=== PATIENT | female | born 1970 | race African-American/Black ===

== ENCOUNTER 2017-02-23 19:01 | Emergency (ER) | payer SELFPAY ==
[~2017-02-23 19:01] MED LIST: FERR325T PO
[2017-02-23 19:04] VITALS: BP 159/104; PULSE 98; RESP 16; TEMP 99.4; O2SAT 97
[2017-02-23 21:26] VITALS: BP 167/92; PULSE 97; RESP 15; TEMP 100.9; O2SAT 96
[2017-02-23] MEDS ORDERED: PANTOPRAZOLE SODIUM 40 MG VIAL IV PUSH ONE (22:15)
[2017-02-23] MEDS ORDERED: SODIUM CHLOR 0.9% 1000 ML INJ 1,000 ML IV ONE (22:15)
[2017-02-23] MEDS ORDERED: ONDANSETRON HCL 4 MG/2 ML VIAL IV PUSH ONE (22:15)
[2017-02-23 22:25] LABS: AUTOMATED NEUTROPHIL # 4.1 TH/MM3 (1.8-7.7); BASOPHIL % 0.3 % (0.0-2.0); EOSINOPHIL % 0.1 % (0.0-4.0); HEMATOCRIT 41.6 % (35.0-46.0); HEMO FLAGS DIFF FINAL; LYMPHOCYTE # 1.1 TH/MM3 (1.0-4.8); MEAN CELL VOLUME 85.6 FL (80.0-100.0); MEAN CORPUSCULAR HGB CONC 33.8 % (32.0-36.0); MONO % 9.9 % (0.0-8.0); NEUT % 70.7 % (16.0-70.0); PLATELET COUNT 272 TH/MM3 (150-450); RED BLOOD COUNT 4.86 MIL/MM3 (4.00-5.30); RED CELL DISTRIBUTION WIDTH 13.3 % (11.6-17.2); WHITE BLOOD COUNT 5.8 TH/MM3 (4.0-11.0)
[2017-02-23 22:44] LABS: ALT (GPT) 21 U/L (10-53)
[2017-02-23 22:47] LABS: ALKALINE PHOSPHATASE 80 U/L (45-117); ANION GAP 8 MEQ/L (5-15); AST (GOT) 36 U/L (15-37); BLOOD UREA NITROGEN 13 MG/DL (7-18); CHLORIDE 103 MEQ/L (98-107); GLOMERULAR FILTRATION RATE 68 ML/MIN (>89); POTASSIUM 4.1 MEQ/L (3.5-5.1); SODIUM (NA) 137 MEQ/L (136-145); TOTAL BILIRUBIN ADULT 0.6 MG/DL (0.2-1.0)
--- NOTE | 2017-02-23 23:45 | PD ---
HPI Chief Complaint: Abdominal Pain Time Seen by Provider: 21:29 Travel History International Travel<30 days: No Contact w/Intl Traveler<30days: No Traveled to known affect area: No History of Present Illness HPI Patient has diarrhea and vomiting and some cramping for the last few days patient denies sick contacts her children with her do not have any symptoms the same patient has a pressure of 167/85 and she reports she is always hypertensive I tell her that is not good and that we may be to treat her with a prescription after we cure her gastroenteritis pain is localized mild to the epigastrium her symptoms have been continuous for the last 2 days he is not taking anything to alleviate the symptoms pain is mild to the epigastrium no radiation PFSH Past Medical History Medical History: Denies Significant Hx Diminished Hearing: No Tetanus Vaccination: Unknown Influenza Vaccination: Yes ?: Unknown Past Surgical History Surgical History: No Previous Surgery Section: Yes Social History Alcohol Use: No Tobacco Use: No Substance Use: No Allergies-Medications (Allergen,Severity, Reaction): Coded Allergies: No Known Allergies (Verified Allergy, Severe, 02/07/03) Reported Meds & Prescriptions Reported Meds & Active Scripts Active Imodium A-D (Loperamide HCl) 2 Mg Capsule 2 Mg PO DIRECTED PRN 5 Days One capsule after each loose stool. Not to exceed 8 tablets per day. Zofran Odt (Ondansetron Odt) 4 Mg Tab 4 Mg SL Q8HR PRN Lisinopril 10 Mg Tab 10 Mg PO DAILY Iron (Ferrous Sulfate) 325 Mg Tab 325 Mg PO TID 30 Days Review of Systems Except as stated in HPI: all other systems reviewed are Neg Gastrointestinal: Positive: Nausea, Vomiting, Diarrhea, Abdominal Pain Physical Exam Narrative GENERAL: No apparent distress awake alert oriented 3 SKIN: Warm and dry. HEAD: Atraumatic. Normocephalic. EYES: Pupils equal and round. No scleral icterus. No injection or drainage. ENT: No nasal bleeding or discharge. Mucous membranes pink and moist. NECK: Trachea midline. No JVD. CARDIOVASCULAR: Regular rate and rhythm. RESPIRATORY: No accessory muscle use. Clear to auscultation. Breath sounds equal bilaterally. GASTROINTESTINAL: Abdomen soft, non-tender, nondistended. Hepatic and splenic margins not palpable. MUSCULOSKELETAL: Extremities without clubbing, cyanosis, or edema. No obvious deformities. NEUROLOGICAL: Awake and alert. No obvious cranial nerve deficits. Motor grossly within normal limits. Five out of 5 muscle strength in the arms and legs. Normal speech. PSYCHIATRIC: Appropriate mood and affect; insight and judgment normal. Data Data Last Documented VS Vital Signs Date Time Temp Pulse Resp B/P (MAP) Pulse Ox O2 Delivery O2 Flow Rate FiO2 02/24/17 00:05 02/23/17 21:26 100.9 97 15 96 Room Air Orders Orders Ondansetron Inj (Zofran Inj) (02/23/17 22:15) Pantoprazole Inj (Protonix Inj) (02/23/17 22:15) Sodium Chlor 0.9% 1000 Ml Inj (Ns 1000 M (02/23/17 22:15) Complete Blood Count With Diff (02/23/17 22:02) Comprehensive Metabolic Panel (02/23/17 22:02) Ed Discharge Order (02/23/17 23:47) Labs Laboratory Tests Test 02/23/17 22:00 White Blood Count 5.8 TH/MM3 Red Blood Count 4.86 MIL/MM3 Hemoglobin 14.1 GM/DL Hematocrit 41.6 % Mean Corpuscular Volume 85.6 FL Mean Corpuscular Hemoglobin 29.0 PG Mean Corpuscular Hemoglobin Concent 33.8 % Red Cell Distribution Width 13.3 % Platelet Count 272 TH/MM3 Mean Platelet Volume 8.7 FL Neutrophils (%) (Auto) 70.7 % Lymphocytes (%) (Auto) 19.0 % Monocytes (%) (Auto) 9.9 % Eosinophils (%) (Auto) 0.1 % Basophils (%) (Auto) 0.3 % Neutrophils # (Auto) 4.1 TH/MM3 Lymphocytes # (Auto) 1.1 TH/MM3 Monocytes # (Auto) 0.6 TH/MM3 Eosinophils # (Auto) 0.0 TH/MM3 Basophils # (Auto) 0.0 TH/MM3 CBC Comment DIFF FINAL Differential Comment Blood Urea Nitrogen 13 MG/DL Creatinine 1.04 MG/DL Random Glucose 101 MG/DL Total Protein 8.2 GM/DL Albumin 3.2 GM/DL Calcium Level 9.2 MG/DL Alkaline Phosphatase 80 U/L Aspartate Amino Transf (AST/SGOT) 36 U/L Alanine Aminotransferase (ALT/SGPT) 21 U/L Total Bilirubin 0.6 MG/DL Sodium Level 137 MEQ/L Potassium Level 4.1 MEQ/L Chloride Level 103 MEQ/L Carbon Dioxide Level 26.0 MEQ/L Anion Gap 8 MEQ/L Estimat Glomerular Filtration Rate 68 ML/MIN MDM Medical Decision Making Medical Screen Exam Complete: Yes Emergency Medical Condition: Yes Differential Diagnosis gastroenteritis vs infectious diarrhea vs IBS or food poisoning bacterial Narrative Course Patient is given a liter fluid Zofran and Protonix feels better labs are all within normal limits there is no elevation of her LFTs aren't her bilirubin is negative as well and her belly exam was benign discharge follow-up as an outpatient I am giving her lisinopril 10 mg by mouth daily for the first time she has never taken an antihypertensive and she is walking around with her pressure 167 she says is her normal 3 years so I explained her the risk of a stroke as well as a cardiac event and give her prescription for 10 mg was sent up rolled follow-up Diagnosis Primary Impression: Gastroenteritis Additional Impression: Hypertension Scripts Loperamide (Imodium A-D) 2 Mg Capsule 2 MG PO DIRECTED Y for DIARRHEA for 5 Days, #6 CAP 0 Refills One capsule after each loose stool. Not to exceed 8 tablets per day. Prov: Darell Dwyer MD 02/23/17 Ondansetron Odt (Zofran Odt) 4 Mg Tab 4 MG SL Q8HR Y for Nausea/Vomiting, #10 TAB 0 Refills Prov: Darell Dwyer MD 02/23/17 Lisinopril (Lisinopril) 10 Mg Tab 10 MG PO DAILY, #30 TAB 0 Refills Prov: Darell Dwyer MD 02/23/17 Disposition: 01 DISCHARGE HOME Condition: Good Darell Dwyer MD Feb 23, 2017 23:45
[2017-02-23] MEDS ORDERED: LISI10TA3 PO (23:52)
[2017-02-23] MEDS ORDERED: LOPE-1 PO (23:52)
[2017-02-23] MEDS ORDERED: ZOFR4TAB3 SL (23:52)
== END 2017-02-24 00:15 | disposition home or self-care (01) ==
LOC: NEPC 19:01
DX: K52.9 Noninfective gastroenteritis and colitis, unspecified (principal); I10 Essential (primary) hypertension; Z79.899 Other long term (current) drug therapy
CPT/HCPCS: 80053; 85025; 96361; 96374; 96375; 99284; C9113; J2405; J7030